=== PATIENT | male | born 1970 | race Caucasian/White ===

== ENCOUNTER 2024-07-24 02:24 | Emergency (ER) | payer MEDICAID, SELFPAY ==
[2024-07-24] VITALS (13 sets, daily range): BP systolic 120–159; BP diastolic 76–108; PULSE 61–89; RESP 16–20; TEMP 36.3–36.9; O2SAT 92–100; BMI 28.7
--- NOTE | 2024-07-24 02:36 | ECG_ITS ---
APPROVED REPORT Exam: Resting ECG HR:82 bpm ECG Measurements Heart Rate 82 AXES DC 170 P 64 QRSd 73 QRS 47 QT 347 T 51 QTc 385 Conclusion SINUS RHYTHM NORMAL ECG Electronically signed by : LILIANA HANNAH, 07/24/2024 06:54:40
--- NOTE | 2024-07-24 02:55 | CT_ITS ---
PROCEDURE INFORMATION: Exam: CT Chest With Contrast; Diagnostic Exam date and time: 07/24/2024 3:27 AM Age: 53 years old Clinical indication: Other: AMS TECHNIQUE: Imaging protocol: Diagnostic computed tomography of the chest with contrast. Radiation optimization: All CT scans at this facility use at least one of these dose optimization techniques: automated exposure control; mA and/or kV adjustment per patient size (includes targeted exams where dose is matched to clinical indication); or iterative reconstruction. Contrast material: ISOVUE; Contrast volume: 75 ml; Contrast route: IV; COMPARISON: No relevant prior studies available. FINDINGS: Lungs: Minimal dependent atelectasis. Pleural spaces: Unremarkable. No pneumothorax. No pleural effusion. Heart: Unremarkable. No cardiomegaly. No pericardial effusion. Coronary arteries: No coronary calcium. Lymph nodes: Unremarkable. No enlarged lymph nodes. Vasculature: Unremarkable. No aortic aneurysm. Liver: The liver is low in density. Bones/joints: Unremarkable. No acute fracture. Soft tissues: Unremarkable. IMPRESSION: 1. No acute process identified. 2. Mild diffuse hepatic steatosis.
--- NOTE | 2024-07-24 02:55 | CT_ITS ---
PROCEDURE INFORMATION: Exam: CT Head Without Contrast Exam date and time: 07/24/2024 3:25 AM Age: 53 years old Clinical indication: Altered mental status/memory loss; Additional info: AMS TECHNIQUE: Imaging protocol: Computed tomography of the head without contrast. Radiation optimization: All CT scans at this facility use at least one of these dose optimization techniques: automated exposure control; mA and/or kV adjustment per patient size (includes targeted exams where dose is matched to clinical indication); or iterative reconstruction. COMPARISON: No relevant prior studies available. FINDINGS: Brain: Normal. No hemorrhage. Unremarkable white matter. No mass effect. Cerebral ventricles: No ventriculomegaly. Paranasal sinuses: Visualized sinuses are unremarkable. No fluid levels. Mastoid air cells: Visualized mastoid air cells are well aerated. Bones: Unremarkable. No acute fracture. Soft tissues: Unremarkable. IMPRESSION: No acute intracranial abnormality.
[2024-07-24 03:00] LABS: Basophils # 0.1 K/mm3 (0-0.2); Basophils % 0.8 % (0.1-2.0); Eosinophils # 0.1 Kmm3 (0.0-0.4); Eosinophils % 1.6 % (0.1-12.0); Hemoglobin 15.5 g/dL (14.1-18.0); Immature Granulocytes # 0.07 10^3uL; Immature Granulocytes % 0.9 %; Lymphocytes # 1.5 K/mm3 (0.7-4.5); Lymphocytes % 19.8 % (10-50); Mean Corpuscular HGB Conc 34.4 g/dL (31.8-35.4); Mean Corpuscular Hemoglobin 33.4 pg (27.0-31.2); Monocytes # 0.8 K/mm3 (0.1-1.0); Monocytes % 10.8 % (1.7-9.3); Neutrophils % 66.1 % (37.0-80.0); Nucleated Red Blood Cells # 0 10^3/uL; Nucleated Red Blood Cells % 0 %; Platelet Count 332 K/mm3 (142-424); Red Blood Count 4.64 M/mm3 (4.60-6.20); Red Cell Distribution Width 12.8 % (11.5-17.5); Red Cell Distribution Width-SD 45.6 fL; White Blood Count 7.5 K/mm3 (4.8-10.8)
[2024-07-24 03:06] LABS: Albumin Level 4.7 g/dl (3.5-5.0); Chloride 112 mmol/L (98-107)
[2024-07-24 03:07] LABS: Potassium 4.2 mmoL/L (3.5-5.1); Sodium 146 mmol/L (136-145); VBG Base Excess -0.7 mmol/L (-2.4-2.3); VBG HCO3 24.2 mmol/L (23-30); VBG Oxygen Saturation 54.7 % (50-70); VBG PCO2 40.7 mmol/L (35-51); VBG PH 7.39 mmol/L (7.31-7.41); VBG Total CO2 25.4 mmol/L (23-27)
[2024-07-24 03:09] LABS: Alanine Aminotransferase 27 U/L (12-78); Albumin/Globulin Ratio 1.6 (1.1-1.8); Alkaline Phosphatase 120 U/L (38-126); Anion Gap 13.2 mEq/L (5-15); Aspartate Amino Transferase 34 U/L (17-59); Bilirubin,Total 0.5 mg/dl (0.2-1.3); Blood Urea Nitrogen 13 mg/dl (9-20); Calcium 9.1 mg/dl (8.4-10.2); Carbon Dioxide 25 mmol/L (22.0-30.0); Creatine Kinase 103 U/L (55-170); Creatinine Clearance Estimated 112 mL/min (50-200); Estimated Glomerular Filt Rate 79 ml/min (>60); GFR (African American) 95 ML/MIN (>60); Globulin 2.9 g/dL (1.3-3.2); Glucose 81 mg/dl (74-100); Lactate Venous 2.6 mmol/L (0.4-2.0); Lipase 36 U/L (23-300); Total Protein,Serum 7.6 g/dl (6.3-8.2)
[2024-07-24 03:10] LABS: Magnesium 2.1 mg/dl (1.6-2.3)
[2024-07-24 03:16] LABS: INR 0.98 (0.9-1.1); Prothrombin Time 10.9 seconds (10.1-12.5)
[2024-07-24 03:22] LABS: Benzodiazepines Screen,Urine Positive ng/ml (<200)
[2024-07-24 03:23] LABS: Amphetamine/Metha Screen,Urine Negative ng/ml (<1000)
[2024-07-24 03:24] LABS: Barbiturates Screen,Urine Negative ng/ml (<200); Cannabinoid Screen,Urine Positive ng/ml (<50)
[2024-07-24 03:25] LABS: Cocaine Screen,Urine Negative ng/ml (<300); Methadone Screen,Urine Negative ng/ml (<300)
[2024-07-24 03:26] LABS: Opiate Screen,Urine Negative ng/ml (<300)
[2024-07-24 03:27] LABS: Phencyclidine Screen,Urine Negative ng/ml (<25)
[2024-07-24 03:30] LABS: Free T4 (Free Thyroxine) 1.55 ng/dl (0.78-2.19)
[2024-07-24] MEDS: IOPAMIDOL-370 (76%);100ML BOTTLE 75 ML IV (03:35)
[2024-07-24] MEDS: SODIUM CHLORIDE 0.9% 10ML SYR (RAD ONLY) 10 ML IV (03:35)
[2024-07-24 03:38] LABS: Ethyl Alcohol 184 mg/dl (0-10)
[2024-07-24 03:40] LABS: Thyroid Stimulating Hormone 0.39 uIU/mL (0.465-4.68)
[2024-07-24] MEDS: LACTATED RINGERS 1000ML 1,000 ML 999 ML IV (03:50)
--- NOTE | 2024-07-24 04:08 | PC.NURSE ---
Patient asleep in bed with side rails up at this time. Respirations even and unlabored. GirlfriendJuli, at bedside.
[2024-07-24 04:47] LABS: Ammonia < 9 umol/L (9-30)
[2024-07-24 04:48] LABS: Microscopic, Urine URINE MICROSCOPIC (MICROSCOPIC)
[2024-07-24 04:50] LABS: Lactic Acid 2.4 mmol/L (0.7-2.1)
--- NOTE | 2024-07-24 04:51 | HMH.EDGENADL ---
Discharge Plan Disposition Patient Disposition: Home, Self-Care Condition: Good Prescriptions Prescriptions: No Action No Known Home Medications Referrals Follow up/Referrals: Provider,Referral, [Primary Care Provider] - See instructions Activity Restrictions/Add. Instructions Additional Instructions/Restrictions: You were evaluated in the ER and are believed to be appropriate for discharge at this time. Drink plenty of water, Gatorade, Pedialyte. Please avoid alcohol, marijuana, and any other illicit substances. Do not take pills from other people. Only take medications prescribed to you. Make an appointment with your primary care doctor for reevaluation in 2 to 3 days. Return to the ER with any new, worsening, or otherwise concerning symptoms. Clinical Impressions Clinical Impression: Altered mental status, Alcoholic intoxication, Polysubstance abuse Instructions Patient Instructions: DI for Altered Mental Status Print Language Print Language: Zambian Discharge ED Provider: Baldev Luna Adult HPI General Chief complaint: Altered Mental Status Stated complaint: Altered Mental Status Time Seen by Provider: 07/24/24 02:43 Mode of Arrival: EMS Source of Information: Patient and EMS Description of Symptoms (Recalled from ER Triage Doc. by RN): Patient to ED via [facility]. Patient was found altered and wandering around a neighborhood approx 0200. Patient is able to state name and time, but is unable to state where he originally came from, who dropped him off in [place], or what his home address is. Patient smells of alcohol and admits to drinking whiskey today but unsure of how much. History of Present Illness HPI narrative: 53-year-old male with history of IV drug use, mental illness who reports being on Seroquel presents to the ER with altered mental status. Patient was brought in by [facility] who reports that patient was found altered wandering around a neighborhood in [place] around 2 AM. Patient is from [facility]. Patient knows his name and the year but is not able to provide a clear history on where he originally came from, how he got to [place], or any other details. To me patient admits to drinking at least 1/5 of vodka today. RN reported to me that patient had told her he used fentanyl 3 days ago despite reporting to me 6 months of sobriety from drug use. He does admit to using marijuana. He states he does not take or use any other illicit drugs. Patient denies pain anywhere. He has no numbness, tingling, or weakness, no headache or dizziness, no vision changes, no sore throat, runny nose, chest pain, difficulty breathing, nausea, vomiting, diarrhea, or other associated symptoms. According to first responders, patient's girlfriend has been looking for him since 1 PM. She arrived in the ER later and provided additional history that he left the house around 1 PM drinking and that was basically the last she had seen of him until finding out he was coming to the ER. Related Data Home Medications ?Medication ?Instructions ?Recorded ?Confirmed No Known Home Medications 07/24/24 07/24/24 Allergies Allergy/AdvReac Type Severity Reaction Status Date / Time No Known Allergies Allergy Verified 07/24/24 02:35 [facility] Disclaimer: The information contained in this section may have been updated after the patient was seen, as this information can be updated by other users. Social History Smoking Status: Current every day smoker alcohol intake: current current occupational status: other Travel in the last 8 weeks?: None ROS Obtained: Yes Systems reviewed as appropriate & no additional complaints except as documented Per HPI Physical Exam General General appearance: alert, in no apparent distress and appears intoxicated Head Head exam: atraumatic and normocephalic Eye Eye exam: Present PERRL and EOMI ENT ENT exam: Present normal oropharynx and mucous membranes moist Neck Neck exam: Present normal inspection and full ROM; Absent tenderness or lymphadenopathy Chest Chest inspection: Present symmetric chest wall rise Respiratory Respiratory exam: Present normal lung sounds bilaterally; Absent respiratory distress, wheezes or stridor Cardiovascular Cardiovascular exam: Present regular rate and normal rhythm Abdominal Exam Abdominal exam: Present soft; Absent distention, tenderness, guarding or rebound Extremities Exam Extremities exam: Present full ROM and normal capillary refill; Absent tenderness, edema or joint swelling Back Exam Back exam: Absent CVA tenderness (R), CVA tenderness (L), paraspinal tenderness or vertebral tenderness Neurological Exam Neurological exam: Present alert and normal gait; Absent oriented X3 (Oriented to self and year, initially disoriented to location and president however after correcting him, he was then able to retain and repeat this information) or motor sensory deficit Psychiatric Psychiatric exam: Present normal affect and normal mood Skin Skin exam: Present warm and dry Medical Decision Making Medical Records Screening: Per USPSTF and CDC recommendations, given the prevalence of disease in our region, it is our hospital?s policy to screen for HIV and viral Hepatitis for all patients aged 18 and over and those with ongoing risk factors. [place] Inquiry Pt receiving controlled substance: No Vital Signs: 07/24/24 02:24 07/24/24 02:50 07/24/24 02:52 Temperature 98.4 F Temperature Source Oral Pulse Rate 78 74 Pulse Rate [Right] 76 Respiratory Rate 16 Blood Pressure 158/108 H 141/85 H Blood Pressure [Right Arm] 128/93 H Blood Pressure Mean Blood Pressure Mean [Right Arm] 104 Blood Pressure Source Blood Pressure Source [Right Arm] Automatic Cuff Blood Pressure Position Blood Pressure Position [Right Arm] Supine 02 Sat by Pulse Oximetry 96 99 97 Oxygen Delivery Method Room Air 07/24/24 02:59 07/24/24 03:01 07/24/24 03:06 Temperature 97.9 F Temperature Source Oral Pulse Rate 61 73 83 Pulse Rate [Right] Respiratory Rate 18 Blood Pressure 141/85 H 159/103 H 155/106 H Blood Pressure [Right Arm] Blood Pressure Mean Blood Pressure Mean [Right Arm] Blood Pressure Source Automatic Cuff Blood Pressure Source [Right Arm] Blood Pressure Position Sitting Blood Pressure Position [Right Arm] 02 Sat by Pulse Oximetry 98 95 93 L Oxygen Delivery Method Room Air 07/24/24 03:34 07/24/24 04:00 07/24/24 04:31 Temperature Temperature Source Pulse Rate 80 68 Pulse Rate [Right] Respiratory Rate Blood Pressure 136/77 148/86 H 120/76 Blood Pressure [Right Arm] Blood Pressure Mean 95 Blood Pressure Mean [Right Arm] Blood Pressure Source Blood Pressure Source [Right Arm] Blood Pressure Position Blood Pressure Position [Right Arm] 02 Sat by Pulse Oximetry 93 L 95 Oxygen Delivery Method Room Air 07/24/24 04:50 07/24/24 05:00 07/24/24 05:09 Temperature 98.2 F 97.4 F L Temperature Source Oral Oral Pulse Rate 68 89 Pulse Rate [Right] Respiratory Rate 17 20 Blood Pressure 120/76 152/88 H 152/88 H Blood Pressure [Right Arm] Blood Pressure Mean 102 Blood Pressure Mean [Right Arm] Blood Pressure Source Automatic Cuff Automatic Cuff Blood Pressure Source [Right Arm] Blood Pressure Position Supine Sitting Blood Pressure Position [Right Arm] 02 Sat by Pulse Oximetry Oxygen Delivery Method Room Air Room Air 07/24/24 05:30 Temperature Temperature Source Pulse Rate Pulse Rate [Right] Respiratory Rate Blood Pressure 139/78 Blood Pressure [Right Arm] Blood Pressure Mean 93 Blood Pressure Mean [Right Arm] Blood Pressure Source Blood Pressure Source [Right Arm] Blood Pressure Position Blood Pressure Position [Right Arm] 02 Sat by Pulse Oximetry Oxygen Delivery Method Lab Data Lab Results 07/24/24 02:45: WBC 7.5, RBC 4.64, Hgb 15.5, Hct 45.0, MCV 97.0 H, MCH 33.4 H, MCHC 34.4, RDW 12.8, Plt Count 332, MPV 9.0, Neut % (Auto) 66.1, Lymph % (Auto) 19.8, [place] % (Auto) 10.8 H, Eos % (Auto) 1.6, Baso % (Auto) 0.8, Neut # (Auto) 5.0, Lymph # (Auto) 1.5, [place] # (Auto) 0.8, Eos # (Auto) 0.1, Baso # (Auto) 0.1, PT 10.9, INR 0.98, VBG pH 7.39, VBG pCO2 40.7, VBG pO2 29.0, VBG HCO3 24.2, VBG Total CO2 25.4, VBG O2 Saturation 54.7, VBG Base Excess -0.7, VBG Lactic Acid 2.6 H, Sodium 146 H, Potassium 4.2, Chloride 112 H, Carbon Dioxide 25, Anion Gap 13.2, BUN 13, Creatinine 1.00, Estimated Creat Clear 112, Estimated GFR 79, Est GFR ( Amer) 95, Glucose 81, Calcium 9.1, Magnesium 2.1, Total Bilirubin 0.5, AST 34, ALT 27, Alkaline Phosphatase 120, Total Creatine Kinase 103, Total Protein 7.6, Albumin 4.7, Globulin 2.9, Albumin/Globulin Ratio 1.6, Lipase 36, TSH 0.39 L, Free T4 1.55, Plasma/Serum Alcohol 184 H 07/24/24 03:06: Urine Color Yellow, Urine Appearance Turbid, Urine pH 5.5, Ur Specific [place] >= 1.030, Urine Protein Trace, Urine Glucose (UA) Negative, Urine Ketones Trace, Urine Blood Negative, Urine Nitrate Negative, Urine Bilirubin Negative, Urine Urobilinogen 0.2, Ur Leukocyte Esterase Negative, Amorphous Sediment 4+, Urine Opiates Screen Negative, Urine Methadone Screen Negative, Ur Barbituates Screen Negative, Ur Phencyclidine Scrn Negative, Ur Amphetamines Screen Negative, U Benzodiazepines Scrn Positive H, Urine Cocaine Screen Negative, U Marijuana (THC) Screen Positive H 07/24/24 04:30: Lactate 2.4 H, Ammonia < 9 L, Troponin I < 0.01 07/24/24 02:45 07/24/24 02:45 Orders (Tests/Meds): ED MEDICATIONS Generic Name Dose Route Start Last Admin Trade Name Freq PRN Reason Stop Dose Admin Lactated Ringer's 1,000 mls @ 999 mls/hr 07/24/24 05:05 07/24/24 03:50 Lactated Ringer's 1000 Ml Bag IV 07/24/24 06:05 999 mls/hr .Q1H1M ONE Administration Sodium Chloride 10 ml 07/24/24 03:35 07/24/24 03:35 Sodium Chloride 0.9% 10ml Syr (Rad Only) IV 08/23/24 03:34 10 ml NEEDED PRN Administration Maintain IV Site Discontinued Medications Generic Name Dose Route Start Last Admin Trade Name Freq PRN Reason Stop Dose Admin Iopamidol 75 ml 07/24/24 03:35 07/24/24 03:35 Iopamidol-370 (76%);100ml Bottle IV 07/24/24 03:36 75 ml ONCE ONE Administration ORDERS Category Date Time Status CT chest w con Stat Cat Scan 07/24/24 02:[address] head/brain wo con Stat Cat Scan 07/24/24 02:55 Completed POCUS Point of Care (ER Only) Stat Exams 07/24/24 02:52 Completed Ammonia Stat Lab 07/24/24 04:30 Completed Complete Blood Count Auto Diff Stat Lab 07/24/24 02:45 Completed Comprehensive Metabolic Panel Stat Lab 07/24/24 02:45 Completed Creatine Kinase Stat Lab 07/24/24 02:45 Completed Drug Screen,Urine Stat Lab 07/24/24 03:06 Completed Ethanol [Ethyl Alcohol] Stat Lab 07/24/24 02:45 Completed Free T4 (Free Thyroxine) Stat Lab 07/24/24 02:45 Completed Lactic Acid Stat Lab 07/24/24 04:30 Completed Lipase Stat Lab 07/24/24 02:45 Completed Magnesium Stat Lab 07/24/24 02:45 Completed Prothrombin Time INR Stat Lab 07/24/24 02:45 Completed Thyroid Stimulating Hormone Stat Lab 07/24/24 02:45 Completed Trop I [Troponin I] Stat Lab 07/24/24 04:30 Completed Troponin I Q3H Lab 07/24/24 08:00 Ordered Troponin I Q3H Lab 07/24/24 11:00 Ordered Urinalysis and Microscopic Stat Lab 07/24/24 03:06 Completed Blood Culture Stat Micro 07/24/24 04:22 Received Venous Blood Gas Stat RT 07/24/24 02:45 Completed Medical Decision Narrative: In summary, this 53-year-old male with comorbidities described in the HPI presents to the emergency department today with altered mental status. On initial evaluation patient is hemodynamically stable, afebrile, GCS 14 with mild confusion. Aside from mild disorientation, remainder of neuroexam is benign without any deficits, cardiopulmonary exam benign, abdominal exam benign, patient has evidence of old track wells on his extremities and admits to history of IV drug use. He reports no history of bacteremia or endocarditis. Differential diagnosis includes but is not limited to intracranial bleed, mass, midline shift, intoxication with alcohol, other substances, urinary tract infection, ACS, arrhythmia, septic emboli, endocarditis, bacteremia, hyperammonemia, among others. [id number] ultrasound personally performed and interpreted at bedside does not demonstrate vegetations on the valves though views were limited secondary to poor acoustic windows. See procedure note for details. Ruling out the most morbid conditions drove my assessment, serum labs, CT imaging, urine studies, blood cultures have been ordered. ECG personally interpreted demonstrates normal sinus rhythm, rate 82, normal axis, normal VT and QTc, no STEMI. Patient received IV fluids. Labs reviewed by me demonstrate no leukocytosis or anemia, platelets normal, PT/INR normal, VBG with normal pH, mildly elevated VBG lactic which is nonspecific, patient has already received IV fluids which will likely correct this. Trace hypernatremia and hyperchloremia potentially related to dehydration, intoxication. Normal kidney function, chemistry lactic 2.4 roughly consistent with VBG lactic. Ammonia less than 9, undetectable, patient has a low TSH but normal free T4. This can be followed up outpatient. CK normal at 103 reassuring against rhabdomyolysis, lipase normal at 36 reassuring as pancreatitis, UA negative for findings of infection. UDS positive for benzos, THC, serum alcohol 184. Findings are consistent with polysubstance use which definitely could have caused the patient to lose a large segment of the day especially if he was significantly intoxicated with large volume of alcohol. Girlfriend reported he could have drink up to 1 gallon of vodka today. Troponin undetectably low less than 0.01. Reassuring in the setting of benign ECG I have very low suspicion for endocarditis at this time since patient has no murmur, swelling, chest pain, shortness of breath, fevers, and very reassuring labs. Blood cultures are pending. CT head and chest personally interpreted demonstrate no acute intracranial abnormality, CT chest without evidence of septic emboli or pulmonary infiltrate. See radiology reads for full interpretations which does, and mild diffuse hepatic steatosis. On reassessment patient is GCS 15, alert, behaving appropriately. He is cooperative and fully oriented. Girlfriend states he is fully back to baseline. I discussed the results with the patient and girlfriend and explained that while I do not have a complete explanation for everything that happened today, I believe polysubstance intoxication played a large role. Since patient is tolerating oral intake, ambulatory, GCS 15, no longer altered, I believe he is appropriate for discharge at this time and he would like to go home. I believe this is reasonable. Friend is also comfortable with this plan. I informed them that blood cultures are pending and if they are positive they will receive a phone call. Patient was given instructions on symptomatic management, follow up instructions, and return precautions for the emergency department. Patient indicated understanding and was discharged in stable condition. Procedures Miscellaneous Procedure Procedure Performed: Limited Cardiac Ultrasound Indication: Altered mental status Identified cardiac views: [-Cardiac subxiphoid] Other cardiac views were attempted including parasternal long and short axis as well as apical four-chamber, views were significantly limited secondary to poor acoustic windows Findings: Cardiac activity present with no gross wall motion abnormality, no pericardial effusion, no right heart strain, no evidence of vegetations on the visualized valves within the limitations of exam Impression: Cardiac activity present with no gross wall motion abnormality, no pericardial effusion, no right heart strain, no evidence of vegetations on the visualized valves within the limitations of exam Images were saved to permanent archive The study was technically adequate CPT: 82253 This study was performed by me, and I personally interpreted all images/videos. Based on my clinical judgement, these images were adequate and did not necessitate further imaging. Critical Care Critical Care Time Critical Care Time: No
[2024-07-24 04:54] LABS: Appearance,Urine TURBID (Clear); Bilirubin,Urine Negative (Negative); Blood, Urine Negative (Negative); Color,Urine YELLOW (Yellow); Glucose,Urine (UA) Negative (Negative); Ketones,Urine TRACE (Negative); Leukocyte Esterase,Urine Negative (Negative); Nitrate,Urine Negative (Negative); PH,Urine 5.5 (5.0-8.5); Protein,Urine TRACE (Negative); Specific Gravity, Urine >= 1.030 (1.005-1.030); Urobilinogen,Urine 0.2 EU/dl (0.2)
[2024-07-24 04:57] LABS: Amorphous Sediment,Urine 4+ /lpf
[2024-07-24 05:13] LABS: Troponin I < 0.01 ng/ml (0.00-0.034)
== END 2024-07-24 05:48 | disposition home or self-care (01) ==
PROVIDERS: Emergency Provider Emergency Medicine
DX: F10.929 Alcohol use, unspecified with intoxication, unspecified (principal); F19.129 Other psychoactive substance abuse with intoxication, unspecified; R74.02 Elevation of levels of lactic acid dehydrogenase [LDH]; R41.82 Altered mental status, unspecified; F17.210 Nicotine dependence, cigarettes, uncomplicated; Y90.6 Blood alcohol level of 120-199 mg/100 ml
CPT/HCPCS: 70450; 71260; 80053; 80307; 80320; 81001; 82140; 82550; 82803; 83605; 83690; 83735; 84439; 84443; 84484; 85025; 85610; 87040; 93005; 96360; 99285; J7120; Q9967